=== PATIENT | female | born 1985 | race Caucasian/White ===

== ENCOUNTER → 2022-03-26 | Emergency (ER) | payer MEDICAID ==
[~2022-03-26] VITALS: Ht 152.4 cm; Wt 60.8 kg
[2022-03-26 18:24] VITALS: BP_SYST 112
--- NOTE | 2022-03-26 18:33 | NUR ---
Patient triaged and placed in waiting room. VSS and patient appears in no acute distress at this time. Accompanied by self, awaiting available bed, and MD notified of need for MSE.
--- NOTE | 2022-03-26 18:36 | NUR ---
Report # [id number] Officer Eliazar
== END | disposition left against medical advice (07) ==
LOC: SED 17:38
DX: S09.90XA Unspecified injury of head, initial encounter (principal); Y04.0XXA Assault by unarmed brawl or fight, initial encounter; Y93.89 Activity, other specified; Y92.89 Other specified places as the place of occurrence of the external cause; Y99.8 Other external cause status; Z53.21 Procedure and treatment not carried out due to patient leaving prior to being seen by health care provider